=== PATIENT | female | born 1940 | race Hispanic/Latino ===

== ENCOUNTER → 2019-01-08 | Outpatient (CLI) | payer MEDICARE, OTHER | END | disposition home or self-care (01) | LOC: RAH 08:30 | PROVIDERS: ATTEND Student in an Organized Health Care Education/Training Program | CPT/HCPCS: 76700 ==

== ENCOUNTER 2019-05-28 02:19 | Inpatient (IN) | payer MEDICARE, OTHER | END 2019-05-31 16:59 | disposition home or self-care (01) | LOC: EDH 02:19 → 2BH 05-29 09:26 → 2AH 05-30 09:05 → EDHIP 04:18 → 2AH 04:46 | PROC: B2111ZZ Fluoroscopy of Multiple Coronary Arteries using Low Osmolar Contrast (ICD-10-PCS; principal; ~2019-05-28) | PROC: B2131ZZ Fluoroscopy of Multiple Coronary Artery Bypass Grafts using Low Osmolar Contrast (ICD-10-PCS; ~2019-05-28) | PROC: 4A023N8 Measurement of Cardiac Sampling and Pressure, Bilateral, Percutaneous Approach (ICD-10-PCS; ~2019-05-28) | DX: I21.4 Non-ST elevation (NSTEMI) myocardial infarction (principal); I50.23 Acute on chronic systolic (congestive) heart failure; I48.91 Unspecified atrial fibrillation; J44.9 Chronic obstructive pulmonary disease, unspecified; K21.9 Gastro-esophageal reflux disease without esophagitis ==

== ENCOUNTER 2019-07-01 01:58 | Observation (INO) | payer MEDICARE, OTHER ==
[~2019-07-01] VITALS: Ht 160 cm; Wt 59.1 kg
[~2019-07-01 01:58] MED LIST: AEC81 PO; ATOR40TA69 PO; LEVO75TA10 PO; LISI-617 PO; METF-444 PO; PANT20TA12 PO
[2019-07-01] MEDS ORDERED: FUROSEMIDE 10 MG/ML 4ML VIAL ONE (02:31)
[2019-07-01] MEDS ORDERED: FUROSEMIDE 10 MG/ML 2ML VIAL ONE (02:31)
[2019-07-01 02:47] LABS: BASOPHILS % (AUTO) 0.5 % (0.0-5.0); EOSINOPHILS % (AUTO) 1.6 % (0.0-8.0); HEMATOCRIT 41.3 % (36-48); LYMPHOCYTES % (AUTO) 22.3 % (21.0-51.0); MEAN CORPUSCULAR HEMOGLOBIN 30.8 pg (27.0-33.0); MEAN CORPUSCULAR HGB CONC 32.3 g/dL (32.0-36.0); MEAN CORPUSCULAR VOLUME 95.4 fL (79-99); MONOCYTES % (AUTO) 3.5 % (3.0-13.0); NEUTROPHILS % (AUTO) 72.1 % (40.0-77.0); NUCLEATED RED BLOOD CELLS 0.1 % (0.0-0.19); PLATELET COUNT (AUTO) 259 K/uL (130-400); RED BLOOD CELL COUNT(AUTO) 4.33 MIL/uL (4.00-5.50); RED CELL DISTRIBUTION WIDTH 14.9 % (11.0-15.5); WHITE BLOOD COUNT (AUTO) 19.9 K/uL (4.8-10.8)
[2019-07-01 02:56] LABS: CREATININE 1.2 mg/dL (0.5-1.5); POTASSIUM 4.3 mmol/L (3.5-5.1)
[2019-07-01 03:01] LABS: ALBUMIN 3.7 g/dL (3.5-5.0); BILIRUBIN,TOTAL 0.9 mg/dL (0.2-1.0); TOTAL PROTEIN, SERUM 7.5 g/dL (6.0-8.3)
[2019-07-01 03:07] LABS: ABG BASE EXCESS -6.9 mmol/L (-2.0-3.0); ABG HCO3 17.9 mmol/L (21.0-28.0); ABG OXYGEN SATURATION 99.6 % (95.0-99.0); ABG PCO2 35 mmHg (32-45)
[2019-07-01] MEDS: FUROSEMIDE 10 MG/ML 4ML VIAL IVP SCH ×2 (06:00→12:59)
[2019-07-01 08:34] VITALS: BP 123/64
--- NOTE | 2019-07-01 08:45 | NUR ---
ARRIVAL TO FLOOR PT IS AAOX4 DENIES CP DENIES SOB DENIES NV. ON O2 2LPM NC. NO COMPLAINTS. ARRIVED WITH ORDERS. CALL LIGHT WITHIN REACH.
[2019-07-01] MEDS ORDERED: PANTOPRAZOLE SODIUM 40 MG TABLET.DR PO SCH (09:15)
[2019-07-01] MEDS ORDERED: METFORMIN HCL 500 MG TABLET PO SCH (09:15)
[2019-07-01 11:42] VITALS: BP 123/53
--- NOTE | 2019-07-01 13:30 | NUR ---
DR PARRA ROUNDED OK TO DC HOME
--- NOTE | 2019-07-01 13:55 | NUR ---
DISCHARGE PATIENT AND FAMILY VERBALIZE DC INSTRUCTIONS UNDERSTANDING, AGREE TO FOLLOW UP WITH DR PARRA TOMORROW 3PM. AGREE TO TAKE MEDS ORDERED. ALL QUESTIONS ANSWERED PIV REMOVED CATH TIP INTACT. TELE PACK REMOVED. DOWN VIA WC WITH NURSE AIDE AND FAMILY.
[2019-07-01] MEDS ORDERED: ATORVASTATIN CALCIUM 40 MG TABLET PO SCH (21:00)
[2019-07-02] MEDS ORDERED: LEVOTHYROXINE 75 MCG TABLET PO SCH (07:30)
[2019-07-02] MEDS ORDERED: LISINOPRIL 5 MG TABLET PO SCH (09:00)
[2019-07-02] MEDS ORDERED: ASPIRIN 81 MG EC TAB PO SCH (09:00)
== END 2019-07-01 13:57 | disposition home or self-care (01) ==
LOC: EDH 01:58 → EDHIP 03:25 → 2DH 08:24
PROVIDERS: ADMIT Internal Medicine; ATTEND Internal Medicine
DX: I35.0 Nonrheumatic aortic (valve) stenosis (principal); R09.89 Other specified symptoms and signs involving the circulatory and respiratory systems; I48.91 Unspecified atrial fibrillation; E11.9 Type 2 diabetes mellitus without complications; I25.10 Atherosclerotic heart disease of native coronary artery without angina pectoris; Z90.49 Acquired absence of other specified parts of digestive tract; Z79.899 Other long term (current) drug therapy
CPT/HCPCS: 36415; 36600; 71045; 80053; 82550; 82803; 82948; 83880; 84484; 85025; 93005; 94660; 96374; 99284; G0378 ×10; J1940 ×3

== ENCOUNTER → 2019-09-05 | Outpatient (CLI) | payer MEDICARE ==
[~2019-09-05] VITALS: Ht 157.5 cm; Wt 58.2 kg
[~2019-09-05] MED LIST changes: +APIX5TAB PO; +CEFUROXIME SODIUM 1.5 GM VIAL IVP SCH; +ERGO500014 PO; +FURO40TA5 PO; +METO25TA6 PO; +PHARMACY COMMUNICATION MISC SCH
[2019-09-05 15:56] LABS: BASOPHILS % (AUTO) 0.5 % (0.0-5.0); EOSINOPHILS % (AUTO) 2.3 % (0.0-8.0); HEMATOCRIT 38.1 % (36-48); LYMPHOCYTES % (AUTO) 29.2 % (21.0-51.0); MEAN CORPUSCULAR HEMOGLOBIN 31.2 pg (27.0-33.0); MEAN CORPUSCULAR HGB CONC 33.4 g/dL (32.0-36.0); MEAN CORPUSCULAR VOLUME 93.6 fL (79-99); MONOCYTES % (AUTO) 5.4 % (3.0-13.0); NEUTROPHILS % (AUTO) 62.6 % (40.0-77.0); NUCLEATED RED BLOOD CELLS 0.1 % (0.0-0.19); PLATELET COUNT (AUTO) 243 K/uL (130-400); RED BLOOD CELL COUNT(AUTO) 4.07 MIL/uL (4.00-5.50); RED CELL DISTRIBUTION WIDTH 14.4 % (11.0-15.5); WHITE BLOOD COUNT (AUTO) 8.2 K/uL (4.8-10.8)
[2019-09-05 16:09] LABS: INR 0.95 (0.85-1.15); PARTIAL THROMBOPLASTIN TIME 26.4 SEC (26.3-35.5)
[2019-09-05 16:15] LABS: ALBUMIN 3.8 g/dL (3.5-5.0); BILIRUBIN,TOTAL 0.6 mg/dL (0.2-1.0); CREATININE 0.9 mg/dL (0.5-1.5); POTASSIUM 4.2 mmol/L (3.5-5.1); TOTAL PROTEIN, SERUM 7.7 g/dL (6.0-8.3)
[2019-09-05 16:19] LABS: HEMOGLOBIN A1C 6.2 % (4.0-6.0)
[2019-09-05 16:26] VITALS: BP 129/54
== END | disposition home or self-care (01) ==
LOC: DAH 10:00 → EDSTATUS 15:00
PROVIDERS: ATTEND Thoracic Surgery (Cardiothoracic Vascular Surgery)
DX: Z01.810 Encounter for preprocedural cardiovascular examination (principal); I35.0 Nonrheumatic aortic (valve) stenosis; I65.23 Occlusion and stenosis of bilateral carotid arteries; Z90.49 Acquired absence of other specified parts of digestive tract
CPT/HCPCS: 36415; 71046; 80053; 80061; 83036; 85025; 85610; 85730; 86850; 86900; 86901; 86922; 93005; 93880; 94060

== ENCOUNTER 2019-09-19 10:00 | Inpatient (IN) | payer MEDICARE ==
[~2019-09-19] VITALS: Ht 152.4 cm; Wt 58.7 kg
[~2019-09-19 10:00] MED LIST changes: -CEFUROXIME SODIUM 1.5 GM VIAL IVP SCH; -ERGO500014 PO; -FURO40TA5 PO; -METO25TA6 PO; -PANT20TA12 PO; -PHARMACY COMMUNICATION MISC SCH
[2019-09-19 11:21] VITALS: BP 117/56
[2019-09-19 11:29] LABS: BASOPHILS % (AUTO) 1.2 % (0.0-5.0); EOSINOPHILS % (AUTO) 1.7 % (0.0-8.0); HEMATOCRIT 37.5 % (36-48); LYMPHOCYTES % (AUTO) 34.9 % (21.0-51.0); MEAN CORPUSCULAR HEMOGLOBIN 31.1 pg (27.0-33.0); MEAN CORPUSCULAR HGB CONC 32.9 g/dL (32.0-36.0); MEAN CORPUSCULAR VOLUME 94.5 fL (79-99); NEUTROPHILS % (AUTO) 57.2 % (40.0-77.0); PLATELET COUNT (AUTO) 192 K/uL (130-400); RED BLOOD CELL COUNT(AUTO) 3.97 MIL/uL (4.00-5.50); RED CELL DISTRIBUTION WIDTH 14.1 % (11.0-15.5)
[2019-09-19 11:37] LABS: HEMOGLOBIN A1C 5.9 % (4.0-6.0)
[2019-09-19 11:41] LABS: POTASSIUM 4.9 mmol/L (3.5-5.1)
[2019-09-19 11:47] LABS: INR 0.98 (0.85-1.15); PARTIAL THROMBOPLASTIN TIME 25.9 SEC (26.3-35.5); PROTHROMBIN TIME 10.3 SEC (9.6-11.6)
[2019-09-19] MEDS ORDERED: METO25TA6 PO (11:56)
[2019-09-19] MEDS ORDERED: ERGO500014 PO (11:56)
[2019-09-19] MEDS ORDERED: FURO40TA5 PO (11:56)
[2019-09-22] VITALS (24 sets, daily range): BP systolic 45–212; BP diastolic 33–77
[2019-09-22] MEDS ORDERED: CEFUROXIME SODIUM 1.5 GM VIAL IVP SCH (05:00)
[2019-09-22] MEDS ORDERED: EPINEPHRINE 8 MG in SODIUM CHLORIDE 0.9% 250 ML IV SCH (06:45)
[2019-09-22] MEDS ORDERED: NOREPINEPHRINE BITARTRATE 8 MG/NS 250ML IV SCH ×2 (06:45)
[2019-09-22] MEDS ORDERED: AMINOCAPROIC ACID 15,000 MG in SODIUM CHLORIDE 0.9% 500ML 500 ML IV SCH (06:45)
[2019-09-22] MEDS ORDERED: SODIUM CHLORIDE 0.9% 1000ML 1,000 ML IV ONE (06:58)
[2019-09-22] MEDS ORDERED: ESMOLOL HCL 10 MG/ML 10 ML VIAL ONE (12:43)
[2019-09-22] MEDS ORDERED: HEPARIN SODIUM 1000UNIT/ML 10ML VIAL ONE (12:43)
[2019-09-22] MEDS ORDERED: AMINOCAPROIC ACID 250 MG/ML 20 ML VIAL IV ONE ×2 (12:43→13:09)
[2019-09-22] MEDS ORDERED: MIDAZOLAM HCL 1 MG/ML 2ML VIAL ONE (12:43)
[2019-09-22] MEDS ORDERED: SODIUM BICARB 50MEQ 50ML VIAL ONE (12:43)
[2019-09-22] MEDS ORDERED: PROPOFOL 10 MG/ML 20ML VIAL IV ONE (12:43)
[2019-09-22] MEDS ORDERED: EPINEPHRINE 1 MG/ML AMPULE ONE (12:43)
[2019-09-22] MEDS ORDERED: NOREPINEPHRINE BITARTRATE 1 MG/1 ML ML IV ONE (12:43)
[2019-09-22] MEDS ORDERED: LIDOCAINE PF 2% 5ML ABBOJECT ONE (12:43)
[2019-09-22] MEDS ORDERED: PROTAMINE SULFATE 10 MG/ML 25ML VIAL IV ONE (12:43)
[2019-09-22] MEDS ORDERED: ROCURONIUM 10MG/1ML SYR 10 MG/ML ML ONE ×2 (12:44→14:38)
[2019-09-22] MEDS ORDERED: SUFENTANIL CITRATE 50 MCG/ML 1ML AMP ONE (12:47)
[2019-09-22] MEDS ORDERED: NITROGLYCERIN 50 MG/D5% WATER 1 BOT ONE (13:08)
[2019-09-22] MEDS ORDERED: CALCIUM CHLORIDE 100 MG/ML 10 ML SYG IVP ONE (13:09)
[2019-09-22] MEDS ORDERED: SODIUM BICARB 8.4% 50ML SYRINGE IVP ONE (13:09)
[2019-09-22] MEDS ORDERED: HEPARIN SODIUM 1000UNIT/ML 10ML VIAL IV ONE (13:09)
[2019-09-22] MEDS ORDERED: MANNITOL 25% 50ML VIAL IV ONE (13:09)
[2019-09-22] MEDS ORDERED: PHENYLEPHRINE HCL 10 MG/ML 1ML VIAL IV ONE (13:09)
[2019-09-22] MEDS ORDERED: ALBUMIN (HUMAN) 25% 50 ML IV ONE (13:09)
[2019-09-22 13:15] LABS: ABG BASE EXCESS -1.7 mmol/L (-2.0-3.0); ABG HCO3 21.6 mmol/L (21.0-28.0); ABG OXYGEN SATURATION 98.7 % (95.0-99.0); ABG PCO2 31 mmHg (32-45)
[2019-09-22] MEDS ORDERED: CEFUROXIME SODIUM 1.5 GM VIAL ONE (13:15)
[2019-09-22] MEDS ORDERED: BACITRACIN 50,000 UNIT VIAL ONE ×2 (13:29→14:38)
[2019-09-22] MEDS ORDERED: ROPIVACAINE 0.5% 5MG/ML 30ML IJ ONE (13:29)
[2019-09-22 14:51] LABS: ABG BASE EXCESS -3.5 mmol/L (-2.0-3.0); ABG HCO3 19.7 mmol/L (21.0-28.0); ABG OXYGEN SATURATION 98.6 % (95.0-99.0); ABG PCO2 27 mmHg (32-45)
[2019-09-22 15:22] LABS: ABG BASE EXCESS -1.9 mmol/L (-2.0-3.0); ABG HCO3 20.2 mmol/L (21.0-28.0); ABG OXYGEN SATURATION 98.7 % (95.0-99.0); ABG PCO2 24 mmHg (32-45)
[2019-09-22] MEDS ORDERED: AMIODARONE HCL 50 MG/ML 3 ML VIAL ONE ×2 (15:23→15:30)
[2019-09-22] MEDS ORDERED: VASOPRESSIN 20 UNITS/ML 1ML VIAL ONE (15:28)
[2019-09-22] MEDS ORDERED: GLYCOPYRROLATE 1 MG/5 ML SYRINGE ONE (15:31)
[2019-09-22 15:40] LABS: ABG BASE EXCESS 1.5 mmol/L (-2.0-3.0); ABG HCO3 23.7 mmol/L (21.0-28.0); ABG OXYGEN SATURATION 98.6 % (95.0-99.0); ABG PCO2 28 mmHg (32-45)
[2019-09-22] MEDS ORDERED: MAGNESIUM 2GM PREMIX 50ML 50 ML IV PRN (16:00)
[2019-09-22] MEDS ORDERED: MORPHINE SULFATE 4 MG/1ML SYG IV PRN (16:00)
[2019-09-22] MEDS ORDERED: DEXTROSE 50%-WATER 50 ML DISP.SYRIN IV PRN (16:00)
[2019-09-22] MEDS ORDERED: INSULIN REGULAR, HUMAN 3ML 100 UNIT in SODIUM CHLORIDE 0.9% 99 ML IV SCH ×2 (16:00)
[2019-09-22] MEDS ORDERED: POTASSIUM PHOS 15 mMOL+NS250ML 250 ML IV PRN (16:00)
[2019-09-22] MEDS ORDERED: ONDANSETRON HCL 4 MG/2 ML VIAL IV PRN (16:00)
[2019-09-22] MEDS ORDERED: ALBUMIN (HUMAN) 5% 250 ML IV PRN (16:00)
[2019-09-22] MEDS ORDERED: GLUCAGON 1MG KIT 1 MG ML IM PRN (16:00)
[2019-09-22] MEDS ORDERED: SODIUM CHLORIDE 0.9% 10 ML VIAL IVP PRN (16:00)
[2019-09-22] MEDS ORDERED: EPINEPHRINE 8 MG in DEXTROSE 5%-WATER 250 ML IV PRN (16:00)
[2019-09-22] MEDS ORDERED: NITROGLYCERIN 50 MG/D5% WATER 250 BOT IV SCH (16:00)
[2019-09-22] MEDS ORDERED: ACETAMINOPHEN 325 MG TAB PO PRN ×2 (16:00)
[2019-09-22] MEDS ORDERED: NOREPINEPHRINE 4MG/NS 250ML 250 ML IV PRN (16:00)
[2019-09-22] MEDS ORDERED: AMINOCAPROIC ACID 15,000 MG in SODIUM CHLORIDE 0.9% 250 ML IV SCH (16:00)
[2019-09-22] MEDS ORDERED: MORPHINE SULFATE 2 MG/ML 1ML SYG IV PRN (16:00)
[2019-09-22] MEDS ORDERED: SODIUM CHLORIDE 0.9% 500ML 500 ML IV SCH (16:00)
[2019-09-22] MEDS ORDERED: SODIUM CHLORIDE 0.9% 1000ML 1,000 ML IV SCH (16:00)
[2019-09-22] MEDS ORDERED: SODIUM BICARB 50MEQ 50ML VIAL IV PRN (16:00)
[2019-09-22] MEDS ORDERED: ACETAMINOPHEN 650 MG SUPPOSITORY RC PRN (16:00)
[2019-09-22] MEDS ORDERED: SODIUM CHLORIDE 0.9% 250 ML IV PRN (16:00)
[2019-09-22] MEDS ORDERED: AMBU PUMP 1 EACH EACH MISC SCH (16:15)
[2019-09-22 16:18] LABS: ABG BASE EXCESS -6.2 mmol/L (-2.0-3.0); ABG HCO3 19.1 mmol/L (21.0-28.0); ABG OXYGEN SATURATION 98.3 % (95.0-99.0); ABG PCO2 37 mmHg (32-45)
[2019-09-22] MEDS ORDERED: INSULIN HUMULIN R 100 UNIT/ML 3ML ONE (16:40)
--- NOTE | 2019-09-22 16:47 | NUR ---
ARRIVAL TO CVR Received from OR. Dr. Dealcruz at bedside. Orally intubated with 7.5 ETT at 20cm at lips, tolerating vent settings as prescribed, off sedation. ETT connected to endotracheal cardiac output monitor. Central Venous catheter to right IJ noted infusing Amicar at 50cc, Levophed at 8mcg/min, and Epinephrine drip at 0.10 mcg/kg/min. Dressing dry and intact to right upper chest. Pacing wires attached to chest, epicardial pacemaker set to VVI rate of 100. Arterial line to left radial patent, leveled and zeroed with adequate waveform. Chest tube x1 to right chest, no air leak noted, minimal serosanguineous output. Nair catheter to gravity. Pulses palpable, ALMAS hose applied. Sinus mechanism in 90s, ASBP 150s
[2019-09-22] MEDS ORDERED: BUPIVACAINE/PF 0.5% 10ML VIAL ONE (17:09)
--- NOTE | 2019-09-22 17:30 | NUR ---
ANESTHESIA Dr. Delacruz at bedside, attempt to remove loose tooth unsuccessful. New consult received for Dr. Burnett, office personnel made aware, ok to see in am as per Dr. Delacruz.
[2019-09-22 17:39] LABS: ABG BASE EXCESS -2.3 mmol/L (-2.0-3.0); ABG HCO3 20.5 mmol/L (21.0-28.0); ABG OXYGEN SATURATION 97.8 % (95.0-99.0); ABG PCO2 30 mmHg (32-45)
--- NOTE | 2019-09-22 17:40 | NUR ---
SHC Dr. Don consumer lending manager for [facility] made aware of pt arrival to CVR, will see in am.
[2019-09-22 17:46] LABS: CREATININE 0.8 mg/dL (0.5-1.5); MAGNESIUM 2.1 mg/dL (1.80-2.40); PHOSPHORUS 4.1 mg/dL (2.5-4.9); POTASSIUM 3.9 mmol/L (3.5-5.1)
[2019-09-22 17:47] LABS: INR 1.82 (0.85-1.15); PARTIAL THROMBOPLASTIN TIME 36.3 SEC (26.3-35.5); PROTHROMBIN TIME 18.7 SEC (9.6-11.6)
[2019-09-22] MEDS: PROPOFOL 1000 MG/100 ML 100 ML IV PRN (17:56)
[2019-09-22] MEDS ORDERED: ROPIVACAINE 0.2% 2MG/ML 100ML VIAL IJ ONE (18:00)
--- NOTE | 2019-09-22 18:05 | NUR ---
MD NOTIFICATION Dr. Morris made aware of EKG showing wide complex tachycardia with hypotension, new order received and will carry out.
[2019-09-22 20:00] LABS: ABG BASE EXCESS 3.6 mmol/L (-2.0-3.0); ABG HCO3 26.5 mmol/L (21.0-28.0); ABG OXYGEN SATURATION 98.7 % (95.0-99.0); ABG PCO2 35 mmHg (32-45)
[2019-09-22 20:01] LABS: HEMATOCRIT 41.3 % (36-48); MEAN CORPUSCULAR HEMOGLOBIN 30.3 pg (27.0-33.0); MEAN CORPUSCULAR HGB CONC 32.9 g/dL (32.0-36.0); MEAN CORPUSCULAR VOLUME 92.3 fL (79-99); PLATELET COUNT (AUTO) 76 K/uL (130-400); RED BLOOD CELL COUNT(AUTO) 4.48 MIL/uL (4.00-5.50); RED CELL DISTRIBUTION WIDTH 15.9 % (11.0-15.5); WHITE BLOOD COUNT (AUTO) 22.1 K/uL (4.8-10.8)
[2019-09-22] MEDS: POTASSIUM CHLORIDE 20MEQ/100ML 100 ML IV PRN ×2 (20:07→21:22)
[2019-09-22] MEDS: ATORVASTATIN CALCIUM 40 MG TABLET PO SCH (20:28)
[2019-09-22] MEDS: CEFAZOLIN SODIUM 1 GM VIAL IV SCH (21:00)
[2019-09-22] MEDS: CALCIUM GLUCONATE 1 GM in SODIUM CHLORIDE 0.9% 50 ML IV PRN (21:03)
[2019-09-22] MEDS ORDERED: ALBUMIN (HUMAN) 5% 250 ML IV ONE (21:07)
[2019-09-23] VITALS (33 sets, daily range): BP systolic 76–190; BP diastolic 28–75
[2019-09-23 00:32] LABS: CREATININE 0.8 mg/dL (0.5-1.5); POTASSIUM 4.1 mmol/L (3.5-5.1)
[2019-09-23] MEDS: PROPOFOL 1000 MG/100 ML 100 ML IV PRN (01:51)
[2019-09-23] MEDS ORDERED: PHARMACY COMMUNICATION MISC SCH ×2 (03:00→05:30)
[2019-09-23 04:13] LABS: ABG BASE EXCESS 0.3 mmol/L (-2.0-3.0); ABG HCO3 21.5 mmol/L (21.0-28.0); ABG OXYGEN SATURATION 98.4 % (95.0-99.0); ABG PCO2 26 mmHg (32-45)
[2019-09-23 04:26] LABS: MEAN CORPUSCULAR HEMOGLOBIN 30.1 pg (27.0-33.0); MEAN CORPUSCULAR HGB CONC 33.2 g/dL (32.0-36.0); MEAN CORPUSCULAR VOLUME 90.7 fL (79-99); PLATELET COUNT (AUTO) 73 K/uL (130-400); RED BLOOD CELL COUNT(AUTO) 3.75 MIL/uL (4.00-5.50); WHITE BLOOD COUNT (AUTO) 19.5 K/uL (4.8-10.8)
[2019-09-23] MEDS ORDERED: CALCIUM GLUCONATE 1 GM/10 ML VIAL IV ONE (04:34)
[2019-09-23 04:39] LABS: INR 1.09 (0.85-1.15); PARTIAL THROMBOPLASTIN TIME 27.1 SEC (26.3-35.5); PROTHROMBIN TIME 11.4 SEC (9.6-11.6)
[2019-09-23] MEDS: CALCIUM GLUCONATE 1 GM in SODIUM CHLORIDE 0.9% 50 ML IV PRN (04:44)
[2019-09-23] MEDS: CEFAZOLIN SODIUM 1 GM VIAL IV SCH ×2 (04:57→13:17)
[2019-09-23 05:12] LABS: CREATININE 0.9 mg/dL (0.5-1.5); MAGNESIUM 1.7 mg/dL (1.80-2.40); PHOSPHORUS 1.5 mg/dL (2.5-4.9); POTASSIUM 3.8 mmol/L (3.5-5.1)
[2019-09-23] MEDS ORDERED: NOREPINEPHRINE BITARTRATE 8 MG/NS 250ML IV SCH ×2 (06:45)
[2019-09-23] MEDS: LEVOTHYROXINE 88 MCG TABLET PO SCH (06:45)
--- NOTE | 2019-09-23 07:32 | NUR ---
DR. THOMAS HAVE SPOKEN TO HIM REGARDING THE CONSULT
[2019-09-23] MEDS: FUROSEMIDE 10 MG/ML 2ML VIAL IV SCH ×2 (08:34→20:22)
[2019-09-23] MEDS: ASPIRIN 81 MG EC TAB PO SCH (08:34)
[2019-09-23] MEDS: FAMOTIDINE/PF 20 MG/2 ML VIAL IV SCH (08:34)
--- NOTE | 2019-09-23 08:45 | NUR ---
DR. THOMAS VISITED AND ASSESSED PATIENT. UPDATED ON PATIENT STATUS. ORDERS GIVEN SEE CHART.
--- NOTE | 2019-09-23 10:45 | NUR ---
DR. BONE VISITED AND ASSESSED PATIENT. UPDATED ON XRAYS AND STATUS. OK TO START CPAP TRIALS.
--- NOTE | 2019-09-23 11:00 | NUR ---
PATIENT VENTILATOR CHANGED TO SIMV OF 4.
--- NOTE | 2019-09-23 11:15 | NUR ---
VENTILATOR CHANGED TO CPAP 08/23. CPAP TRIALS.
[2019-09-23] MEDS: TRAMADOL HCL 50 MG TABLET PO PRN ×2 (11:16→17:36)
[2019-09-23 12:08] LABS: ABG BASE EXCESS 2.4 mmol/L (-2.0-3.0); ABG OXYGEN SATURATION 98.4 % (95.0-99.0); ABG PCO2 36 mmHg (32-45)
--- NOTE | 2019-09-23 12:25 | NUR ---
PATIENT TOLERATED CPAP TRIALS, ABG RESULTS WITH IN NORMAL RANGES. PATIENT EXTUBATED PER MD ORDER.
[2019-09-23 13:36] LABS: ABG BASE EXCESS 1.8 mmol/L (-2.0-3.0); ABG HCO3 25.6 mmol/L (21.0-28.0); ABG PCO2 38 mmHg (32-45)
--- NOTE | 2019-09-23 13:42 | NUR ---
PATIENT IS NOT READY FOR PT EVALUATION PER GEOVANNA CHILDS PATIENT IS STILL INTUBATED. Addendum: 09/23/19 at 1344 by JUDD ZAMBRANO, PT PT Amended: Links added.
[2019-09-23 20:01] LABS: MAGNESIUM 2.3 mg/dL (1.80-2.40); PHOSPHORUS 5.1 mg/dL (2.5-4.9); POTASSIUM 4.3 mmol/L (3.5-5.1)
[2019-09-23] MEDS: ATORVASTATIN CALCIUM 40 MG TABLET PO SCH (20:21)
[2019-09-24] VITALS (23 sets, daily range): BP systolic 86–187; BP diastolic 40–108
[2019-09-24] MEDS: TRAMADOL HCL 50 MG TABLET PO PRN ×3 (00:22→13:38)
[2019-09-24 04:27] LABS: HEMATOCRIT 29.6 % (36-48); MEAN CORPUSCULAR HGB CONC 33.5 g/dL (32.0-36.0); MEAN CORPUSCULAR VOLUME 92.3 fL (79-99); PLATELET COUNT (AUTO) 41 K/uL (130-400); RED BLOOD CELL COUNT(AUTO) 3.21 MIL/uL (4.00-5.50); RED CELL DISTRIBUTION WIDTH 15.8 % (11.0-15.5); WHITE BLOOD COUNT (AUTO) 16.4 K/uL (4.8-10.8)
[2019-09-24 04:53] LABS: POTASSIUM 3.6 mmol/L (3.5-5.1)
[2019-09-24] MEDS: POTASSIUM CHLORIDE 20MEQ/100ML 100 ML IV PRN ×2 (04:56→06:18)
[2019-09-24] MEDS: LEVOTHYROXINE 88 MCG TABLET PO SCH (05:57)
[2019-09-24] MEDS: INSULIN HUMULIN R 100 UNIT/ML 3ML SQ SCH ×4 (06:43→21:00)
--- NOTE | 2019-09-24 07:00 | NUR ---
ASSESSMENT ASSUMED CARE. SITTING IN CARDIAC CHAIR. AA&OX3. NO RESPIRATORY DISTRESS NOTED. UNLABORED RESPIRATIONS ON O2 3L NC. ENCOURAGED COUGH AND DEEP BREATHING. EXPECTORATED MODERATE AMOUNT OF YELLOW SPUTUM. ENCOURAGED I.S. Q1HR WHILE AWAKE. TOLERATED 500ML. CHEST TUBES SECURE, PATENT, DRAINING TO 20CM H20 SUCTION. SHULTZ SECURE & PATENT. BEDSIDE MONITORING SINUS RHYTHM HR 60'S WITH FREQUENT PAC'S. FULL ASSESSMENT DOCUMENTED.
--- NOTE | 2019-09-24 07:30 | NUR ---
DR PATE HERE UPDATED REGARDING PT STATUS. HE REVIEWED CHART, V/S, LABS. ORDERS RECEIVED AND CARRIED OUT.
--- NOTE | 2019-09-24 08:30 | NUR ---
VISITOR, SON, HERE TO SEE PT UPDATED. PATIENT IN VERY GOOD SPIRITS AND VERY MOTIVATED TO INCREASE ACTIVITY AND GO HOME.
[2019-09-24] MEDS ORDERED: METOPROLOL TARTRATE 25 MG TAB PO SCH (09:00)
--- NOTE | 2019-09-24 09:00 | NUR ---
DR THOMAS HERE TO SEE PATIENT UPDATED. HE VIEWED XRAYS FROM TODAY AND YESTERDAY. HE STATED NO INTERVENTION FROM HIS AT THIS POINT AND JUST CALL BACK IF NEEDED.
[2019-09-24] MEDS: FUROSEMIDE 20 MG TABLET PO SCH ×2 (09:42→17:32)
[2019-09-24] MEDS: FAMOTIDINE/PF 20 MG/2 ML VIAL IV SCH (09:42)
[2019-09-24] MEDS: ASPIRIN 81 MG EC TAB PO SCH (09:42)
[2019-09-24] MEDS: METFORMIN HCL 500 MG TAB.SR.24H PO SCH (09:42)
--- NOTE | 2019-09-24 11:00 | NUR ---
DR BARON HERE TO SEE PT UPDATED. HE VIEWED XRAYS FROM TODAY AND YESTERDAY. NO NEW ORDERS AT THIS TIME.
--- NOTE | 2019-09-24 14:39 | NUR ---
SUDHIR PLAN VISITED WITH PATIENT. PATIENT STILL IN CVR. SLEEPING MAILE WILL CONTINUE TO FOLLOW. Addendum: 09/24/19 at 1439 by ELLEN KHANNA RN CM Amended: Links added.
--- NOTE | 2019-09-24 16:06 | NUR ---
dr fowler here to see patient. updated. ordered not to consult hematology at this time. notified dr perez. downgraded to tele.
[2019-09-24] MEDS: METOPROLOL TARTRATE 25 MG TAB PO SCH (20:50)
[2019-09-24] MEDS: ATORVASTATIN CALCIUM 40 MG TABLET PO SCH (20:50)
[2019-09-25] MEDS: TRAMADOL HCL 50 MG TABLET PO PRN ×3 (03:50→22:11)
[2019-09-25 04:00] VITALS: BP 158/58
[2019-09-25 04:39] LABS: HEMATOCRIT 29.9 % (36-48); MEAN CORPUSCULAR HEMOGLOBIN 30.8 pg (27.0-33.0); MEAN CORPUSCULAR HGB CONC 33.4 g/dL (32.0-36.0); MEAN CORPUSCULAR VOLUME 92.2 fL (79-99); PLATELET COUNT (AUTO) 40 K/uL (130-400); RED BLOOD CELL COUNT(AUTO) 3.24 MIL/uL (4.00-5.50); RED CELL DISTRIBUTION WIDTH 15.5 % (11.0-15.5); WHITE BLOOD COUNT (AUTO) 10.6 K/uL (4.8-10.8)
[2019-09-25 04:54] LABS: CREATININE 0.8 mg/dL (0.5-1.5); POTASSIUM 3.9 mmol/L (3.5-5.1)
[2019-09-25] MEDS: INSULIN HUMULIN R 100 UNIT/ML 3ML SQ SCH ×4 (06:27→21:00)
[2019-09-25] MEDS: LEVOTHYROXINE 88 MCG TABLET PO SCH (06:29)
[2019-09-25 07:52] VITALS: BP 149/54
[2019-09-25] MEDS ORDERED: ENOXAPARIN SODIUM 30 MG/0.3 ML SQ SCH (09:00)
[2019-09-25] MEDS: METFORMIN HCL 500 MG TAB.SR.24H PO SCH (09:00)
[2019-09-25] MEDS: FAMOTIDINE/PF 20 MG/2 ML VIAL IV SCH (09:00)
[2019-09-25] MEDS: FUROSEMIDE 20 MG TABLET PO SCH ×2 (09:01→22:07)
[2019-09-25] MEDS: METOPROLOL TARTRATE 25 MG TAB PO SCH ×2 (09:01→22:07)
[2019-09-25 11:24] VITALS: BP 150/58
--- NOTE | 2019-09-25 14:34 | NUR ---
DC PLAN VISITED WITH PATIENT. PATIENT LIVES WITH ALONE. SEMI INDEPENDENT ABLE TO PERFORM ADL'S. PATIENT HAS PROVIDER 27 11/20. HOME HEALTH IS UNITED. FEELS SAFE TO RETURN HOME. LET NURSE KNOW NEED ORDER FROM DR. BROOKS TO CONTINUE HOME HEALTH SERVICES. Addendum: 09/25/19 at 1436 by ELLEN KHANNA RN CM Amended: Links added.
--- NOTE | 2019-09-25 15:00 | NUR ---
REMOVAL OF LINES CHEST TUBE, SHULTZ, AND QPUMP REMOVED, PACER WIRES CLIPPED TOLERATED WELL, MANUAL PRESSURE HELD AND DSTAT APPLIED TO RT IJ AFTER CORDIS REMOVED, CALL LIGHT WITHIN REACH, FAMILY AT BEDSIDE.
[2019-09-25 16:13] VITALS: BP 147/54
[2019-09-25 19:44] VITALS: BP 138/51
[2019-09-25] MEDS: ATORVASTATIN CALCIUM 40 MG TABLET PO SCH (22:07)
[2019-09-25 23:27] VITALS: BP 157/64
[2019-09-26] MEDS: TRAMADOL HCL 50 MG TABLET PO PRN ×2 (03:54→03:55)
[2019-09-26 04:00] VITALS: BP 136/51
[2019-09-26 04:22] LABS: HEMATOCRIT 29.3 % (36-48); MEAN CORPUSCULAR HGB CONC 33.7 g/dL (32.0-36.0); PLATELET COUNT (AUTO) 43 K/uL (130-400); RED BLOOD CELL COUNT(AUTO) 3.19 MIL/uL (4.00-5.50); RED CELL DISTRIBUTION WIDTH 14.3 % (11.0-15.5); WHITE BLOOD COUNT (AUTO) 7.8 K/uL (4.8-10.8)
[2019-09-26 04:31] LABS: CREATININE 0.6 mg/dL (0.5-1.5); POTASSIUM 3.4 mmol/L (3.5-5.1)
[2019-09-26] MEDS: INSULIN HUMULIN R 100 UNIT/ML 3ML SQ SCH (06:05)
[2019-09-26] MEDS: LEVOTHYROXINE 88 MCG TABLET PO SCH ×2 (06:18→09:10)
[2019-09-26 07:42] VITALS: BP 143/56
[2019-09-26] MEDS: FUROSEMIDE 20 MG TABLET PO SCH (09:09)
[2019-09-26] MEDS: FAMOTIDINE/PF 20 MG/2 ML VIAL IV SCH (09:09)
[2019-09-26] MEDS: METOPROLOL TARTRATE 25 MG TAB PO SCH (09:10)
[2019-09-26] MEDS: METFORMIN HCL 500 MG TAB.SR.24H PO SCH (09:10)
[2019-09-26] MEDS ORDERED: POTASSIUM CHLORIDE 10% ELIXIR 20 MEQ/15 ML UDCUP PO PRN (09:15)
== END 2019-09-26 10:56 | disposition home or self-care (01) | DRG 219 ==
LOC: EDSTATUS 10:00 → DAHIP 09-22 06:17 → 2CV 09-22 15:44 → 2AH 09-24 16:56 → 2DH 09-24 17:26
PROVIDERS: ADMIT Thoracic Surgery (Cardiothoracic Vascular Surgery); ATTEND Thoracic Surgery (Cardiothoracic Vascular Surgery)
PROC: B24BZZ4 Ultrasonography of Heart with Aorta, Transesophageal (ICD-10-PCS; 2019-09-22)
PROC: X2RF032 Replacement of Aortic Valve using Zooplastic Tissue, Rapid Deployment Technique, Open Approach, New Technology Group 2 (ICD-10-PCS; principal; 2019-09-22 12:40)
PROC: 5A1221Z Performance of Cardiac Output, Continuous (ICD-10-PCS; 2019-09-22 12:40)
PROC: 30233N1 Transfusion of Nonautologous Red Blood Cells into Peripheral Vein, Percutaneous Approach (ICD-10-PCS; 2019-09-23)
DX: I35.0 Nonrheumatic aortic (valve) stenosis (principal); I50.43 Acute on chronic combined systolic (congestive) and diastolic (congestive) heart failure; I11.0 Hypertensive heart disease with heart failure; I48.0 Paroxysmal atrial fibrillation; D64.9 Anemia, unspecified; D69.6 Thrombocytopenia, unspecified; D72.829 Elevated white blood cell count, unspecified; E03.9 Hypothyroidism, unspecified; E11.9 Type 2 diabetes mellitus without complications; E78.00 Pure hypercholesterolemia, unspecified; E78.5 Hyperlipidemia, unspecified; F41.9 Anxiety disorder, unspecified; I25.10 Atherosclerotic heart disease of native coronary artery without angina pectoris; J44.9 Chronic obstructive pulmonary disease, unspecified; K21.9 Gastro-esophageal reflux disease without esophagitis; T18.108A Unspecified foreign body in esophagus causing other injury, initial encounter; Y92.89 Other specified places as the place of occurrence of the external cause; I25.2 Old myocardial infarction; Z79.4 Long term (current) use of insulin; Z79.899 Other long term (current) drug therapy; Z86.73 Personal history of transient ischemic attack (TIA), and cerebral infarction without residual deficits; Z90.710 Acquired absence of both cervix and uterus; Z95.1 Presence of aortocoronary bypass graft; Z83.3 Family history of diabetes mellitus
CPT/HCPCS: 36415; 70140; 71045; 71046; 71047; 80048; 80061; 82330; 82435; 82803; 82947; 82948; 83036; 83605; 83735; 84100; 84132; 84295; 85018; 85025; 85027; 85347; 85610; 85730; 86850; 86900; 86901; 86922; 93005; 93318; 94002; 94003; 97039; A7048; G0378; J0171; J0282; J0610; J0690; J0697; J1030; J1644; J1815; J1940; J2001; J2150; J2250; J2270; J2370; J2704; J2720; J2795; J3475; J3480; J3490; J7030; J7040; P9016; P9045; P9047

== ENCOUNTER → 2024-02-15 | Outpatient (CLI) | payer MEDICARE ==
[~2024-02-15] MED LIST changes: +ERGO500014 PO; +FURO40TA5 PO; -LISI-617 PO; +LISI5TAB21 PO; +METO25TA6 PO
== END | disposition home or self-care (01) ==
LOC: RAH 08:59
PROVIDERS: ATTEND Internal Medicine
DX: M54.14 Radiculopathy, thoracic region (principal); M54.16 Radiculopathy, lumbar region
CPT/HCPCS: 72070; 72100

== ENCOUNTER 2024-10-26 21:03 | Inpatient (IN) | payer MEDICARE ==
[~2024-10-26] VITALS: Ht 160 cm; Wt 66.4 kg
--- NOTE | 2024-10-26 21:34 | HMCIMG ---
CHEST 1VW REASON: SYNCOPE COMPARISON: 09/16/2024 FINDINGS: Single view of the chest was obtained. Lungs are clear. Heart size is normal. There is no pulmonary vascular congestion. Mediastinum and bony thorax appear unremarkable. There is been a previous median sternotomy. IMPRESSION: 1. No acute finding, no change.
[2024-10-26] MEDS: 0.9%NACL 1000ML 1,000 ML IV ONE (21:51)
[2024-10-26 21:58] LABS: BASOPHILS # (AUTO) 0.06 K/uL (0.00-0.20); BASOPHILS % (AUTO) 0.3 % (0.0-5.0); HEMATOCRIT 40.1 % (36-48); IMMATURE GRANULOCYTE ABSOLUTE 0.07 K/uL (0-1); LYMPHOCYTES # (AUTO) 0.6 K/uL (1.0-4.8); LYMPHOCYTES % (AUTO) 3.6 % (21.0-51.0); MEAN CORPUSCULAR HEMOGLOBIN 32.6 pg (27.0-33.0); MEAN CORPUSCULAR HGB CONC 32.9 g/dL (32.0-36.0); MONOCYTES # (AUTO) 0.8 K/uL (0.1-1.0); MONOCYTES % (AUTO) 4.3 % (3.0-13.0); NEUTROPHILS # (AUTO) 16.1 K/uL (1.8-7.7); NEUTROPHILS % (AUTO) 91.4 % (40.0-77.0); PLATELET COUNT (AUTO) 168 K/uL (130-400); RED BLOOD CELL COUNT(AUTO) 4.05 MIL/uL (4.00-5.50); RED CELL DISTRIBUTION WIDTH 13.2 % (11.0-15.5); WHITE BLOOD COUNT (AUTO) 17.6 K/uL (4.8-10.8)
[2024-10-26 22:08] LABS: CREATININE 1.2 mg/dL (0.5-1.0); POTASSIUM 3.9 mmol/L (3.5-5.1)
[2024-10-26 22:13] LABS: INR 1.01 (0.85-1.15); PROTHROMBIN TIME 10.9 SEC (9.6-11.6)
--- NOTE | 2024-10-26 22:13 | ERN ---
General Chief Complaint: Syncope Stated Complaint: SYNCOPE WHILE SITTING IN CHAIR, NO TRAUMA Time Seen by MD: 21:19 History of Present Illness Initial Comments Mrs Disla is an is a 84-year-old female significant past medical history of tobacco abuse, essential hypertension, type 2 diabetes, hyperlipidemia who presents today with a chief complaint of syncope. Patient was brought in by her son who reports that she recently was seen at [facility] for a fall and a subsequent left humeral fracture. Patient apparently has been falling more in the last week. Patient was unable to at to any assisted movements. She has trouble with independence. She has trouble getting out of her chair. Patient continues to smoke. Allergies: Coded Allergies: codeine (Unverified Allergy, Unknown, 09/05/19) iodine (Unverified Allergy, Unknown, 05/29/19) Home Meds Reported Medications Ergocalciferol (Vitamin D2) (Vitamin D2) 50,000 Unit Capsule, 50789 UNIT PO WEEKLY, CAP 09/19/19 Metoprolol Tartrate (Metoprolol Tartrate) 25 Mg Tablet, 25 MG PO BID, TAB 09/19/19 Furosemide (Furosemide) 40 Mg Tablet, 40 MG PO BID, TAB 09/19/19 Apixaban (Eliquis) 5 Mg Tablet, 5 MG PO BID, TAB 09/05/19 Metformin HCl (Metformin HCl) 500 Mg Tablet, 500 MG PO AM, TAB 05/28/19 Lisinopril (Lisinopril) 5 Mg Tablet, 2.5 MG PO AM, TAB 05/28/19 Levothyroxine Sodium (Levothyroxine Sodium) 75 Mcg Tablet, 88 MCG PO ACBKFST, TAB 05/28/19 Atorvastatin Calcium (LIPITOR) 40 Mg Tablet, 40 MG PO HS, TAB 05/28/19 Aspirin (ASPIRIN 81 MG ECTAB) 81 Mg Ectab, 81 MG PO DAILY, TAB.EC 05/28/19 Past Medical History Past Medical History: CAD, CVA, Dementia, Diabetes-Type II, High Cholesterol, Heart Disease, Hypertension Past Surgical History: CABG ROS Dictation Constitutional: Negative for fever,chills, and weight loss Eyes: Negative for injury, pain,redness, and discharge ENT: Negative for injury,pain or swelling Cardiovascular: Negative for chest pain, palpitations, and edema Respiratory: Negative for shortness of breath, cough, and wheezing, Abdomen/GI: Negative for abdominal pain, nausea, vomiting, diarrhea, and constipation Back: Negative for injury and pain : Negative for injury, bleeding and discharge MS/Extremity: Positive for falls Skin: Negative for rash, and discoloration Neuro: Positive for weakness Psych: Negative for suicide ideation, homicidal ideation, and hallucinations Physical Exam Physical Exam Dictation General: Sleeping female Head/Face: Normocephalic, atraumatic Eyes: PERRL, EOMI ENT: oral cavity clear Neck: Trachea midline, supple, Cardiovascular: RRR, normal S1/S2, No MRGs, no JVD Respiratory: Diminished breath sounds Abdomen: Soft, non-tender, non-distended, normal bowel sounds, no guarding or rebound. Skin: Warm, dry, normal turgor, no rash MS/Extremity: Pulses equal, Neuro: Continuously moving extremities Results Laboratory and Microbiology Lab and Micro Result Laboratory Tests Test 10/26/24 21:50 White Blood Count 17.6 K/uL (4.8-10.8) H Red Blood Count 4.05 MIL/uL (4.00-5.50) Hemoglobin 13.2 g/dL (12.0-16.0) Hematocrit 40.1 % (36-48) Mean Corpuscular Volume 99.0 fL (79-99) Mean Corpuscular Hemoglobin 32.6 pg (27.0-33.0) Mean Corpuscular Hemoglobin Concent 32.9 g/dL (32.0-36.0) Red Cell Distribution Width 13.2 % (11.0-15.5) Platelet Count 168 K/uL (130-400) Mean Platelet Volume 11.6 fL (7.5-10.5) H Immature Granulocyte % (Auto) 0.4 % (0-1) Neutrophils (%) (Auto) 91.4 % (40.0-77.0) H Lymphocytes (%) (Auto) 3.6 % (21.0-51.0) L Monocytes (%) (Auto) 4.3 % (3.0-13.0) Eosinophils (%) (Auto) 0.0 % (0.0-8.0) Basophils (%) (Auto) 0.3 % (0.0-5.0) Neutrophils # (Auto) 16.1 K/uL (1.8-7.7) H Lymphocytes # (Auto) 0.6 K/uL (1.0-4.8) L Monocytes # (Auto) 0.8 K/uL (0.1-1.0) Eosinophils # (Auto) 0.00 K/uL (0.00-0.70) Basophils # (Auto) 0.06 K/uL (0.00-0.20) Absolute Immature Granulocyte (auto 0.07 K/uL (0-1) Nucleated Red Blood Cells 0.0 % (0.0-0.19) White Cell Morphology Comment See comments Prothrombin Time 10.9 SEC (9.6-11.6) Prothromb Time International Ratio 1.01 (0.85-1.15) Sodium Level 144 mmol/L (136-145) Potassium Level 3.9 mmol/L (3.5-5.1) Chloride Level 107 mmol/L (101-111) Carbon Dioxide Level 26 mmol/L (21-32) Blood Urea Nitrogen 24 mg/dL (7-18) H Creatinine 1.2 mg/dL (0.5-1.0) H Glomerular Filtration Rate Calc 45 mL/min (>90) Random Glucose 187 mg/dL (70-105) H Total Calcium 9.6 mg/dL (8.5-10.1) Magnesium Level 1.80 mg/dL (1.80-2.40) Total Creatine Kinase 72 U/L (21-232) # Troponin I High Sensitivity 43.6 ng/L (4-50) MDM Patient appears to have a COPD exacerbation and severe deconditioning. Patient will be admitted for further evaluation and care MDM: Differential diagnosis: COPD exacerbation Rationale: Tests considered and ordered secondary to shared decision making include: labs, ECG and radiology Previous outside records reviewed: Old ER visits. Risk of complication and/or morbidity or mortality of patient management: None Medications-Per medication reconciliation Need for hospitalization: Patient does meet criteria for hospitalization. Need for emergency major/minor surgery: No There are no social concerns with this patient. Prescription drug management Prescriptions will include symptomatic care Patient's prior external medical records from other ER visits were reviewed by me as indicated. Prior testing and results from previous visits were reviewed. Prior tests were taken into account with medical decision making and resource utilization, independent historian/historians were used to obtain complete medical history. I independently interpreted the test that were performed, results were reviewed by me and considered findings on radiology if ordered. Medical management and examination interpretation discussions were had by me with other qualified healthcare professionals as indicated for the patient's care. ED Course Orders Procedure Category Date Status Time Cbc With Differential LAB 10/26/24 Complete 21:07 Basic Metabolic Panel LAB 10/26/24 Complete 21:07 Pt And Ptt LAB 10/26/24 In Process 21:07 Magnesium LAB 10/26/24 Complete 21:07 12 Lead Ekg Tracing- EKG 10/26/24 Logged Technical 21:07 Chest 1vw RAD 10/26/24 Resulted 21:07 Urinalysis Profile LAB 10/26/24 Logged 21:07 Cardiac Panel LAB 10/26/24 Complete 21:43 Chest 1vw RAD 10/26/24 Logged 21:43 Ct Head/Brain W/O CT 10/26/24 Logged Contrast 21:43 0.9%Nacl 1000ml (Ns PHA 10/26/24 Complete 1000ml) 22:00 Current Medications Medications (Trade) Dose Ordered Sig/Ej Route PRN Reason Start Time Stop Time Status Last Admin Dose Admin Sodium Chloride 1,000 ml @ 0 mls/hr ONCE ONCE IV 10/26/24 22:00 10/26/24 22:01 DC 10/26/24 21:51 Vital Signs Date Time Temp Pulse Resp B/P (MAP) Pulse Ox O2 Delivery O2 Flow Rate FiO2 10/26/24 21:58 80 19 98/67 95 Room Air* 0 10/26/24 21:22 79 16 134/89 95 Room Air* 0 10/26/24 21:04 99.1 82 18 125/84 98 Room Air 0 DX & DISP Disposition: Discharge Departure Impression: Primary Impression: COPD exacerbation Condition: Stable Referrals: JOSE BROOKS MD (PCP) ALONA FERNANDEZ MD Oct 26, 2024 22:13
--- NOTE | 2024-10-26 22:15 | NUR ---
SON REPORTS PATIENT HAVING AN EPISODE WHERE SHE WENT SLUMPED BACK IN CHAIR AFTER GETTING [place] [facility] [place] REPORTS SHE HAS BEEN HAVING EPISODED LIKE THIS FOR A FEW DAYS. REPORTS WAS SEEN EARLIER TODAY AT [facility] [place] AND SUSTAINED A FRACTURE TO L UPPER ARM. REPORTS SLING PLACED ON PATIENT AND DISCHARGED HOME.
[2024-10-26 22:19] LABS: MAGNESIUM 1.8 mg/dL (1.80-2.40)
[2024-10-26] MEDS: Solu-medROL 125MG VIAL IVP ONE (23:01)
--- NOTE | 2024-10-26 23:05 | NUR ---
PATIENT DID NOT BRING HOME MEDICATIONS
[2024-10-26] MEDS: ZOSYN 3.375GM +NS 50ML IVPB SCH (23:14)
[2024-10-26] MEDS: DEXTROSE 5 %-0.45 % NACL 1,000 ML IV SCH (23:15)
[2024-10-26 23:36] LABS: ABG BASE EXCESS -1.8 mmol/L (-2.0-3.0); ABG HCO3 20.7 mmol/L (21.0-28.0); ABG OXYGEN SATURATION 91.2 % (94.0-98.0); ABG PCO2 30 mmHg (32-45); ABG PH 7.463 (7.350-7.450); DEVICE COMMENT RB,RN MANY; VENT MODE, BG RA,21 (ROOM AIR)
[2024-10-26 23:40] LABS: PARTIAL THROMBOPLASTIN TIME 21.9 SEC (26.3-35.5)
[2024-10-27] VITALS (11 sets, daily range): BP systolic 91–133; BP diastolic 57–82; PULSE 71–83; RESP 16–24; TEMP 97.5–98.3; O2SAT 90–98
--- NOTE | 2024-10-27 00:42 | HMCIMG ---
CT HEAD/BRAIN W/O CONTRAST HISTORY: The COMPARISON: None TECHNIQUE: Multiple sequential axial images of the head were obtained from the base of the skull through vertex. Patient was not given contrast through intravenous route. FINDINGS: The ventricles and extraventricular CSF spaces are dilated consistent with cerebral atrophy. Nonspecific white matter changes seen. 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 There is no midline shift, mass effect or herniation. No acute intracranial bleed is seen. Visualized portion of the paranasal sinuses are grossly within normal limits. IMPRESSION: 1. No acute intracranial bleed is seen. 2. Atrophy with white matter changes. 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 CT was performed with one or more following dose reduction techniques: automated exposure control, adjustment of the mA and kv according to patient's size, or use of a iterative reconstruction technique.
[2024-10-27] MEDS ORDERED: TRAM100T34 PO (02:10)
[2024-10-27] MEDS ORDERED: LEVO100T4 PO (02:10)
[2024-10-27] MEDS ORDERED: METO-391 PO (02:10)
[2024-10-27] MEDS ORDERED: MIDO2.5T4 PO (02:10)
--- NOTE | 2024-10-27 07:28 | EKG ---
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
--- NOTE | 2024-10-27 08:13 | PN ---
PROGRESS NOTE PROGRESS NOTE DATE OF PROGRESS NOTE: 10/27/24 SUBJECTIVE: Has general body weakness and has been unable to walk since the fracture VITAL SIGNS Vital Signs Date Time Temp Pulse Resp B/P (MAP) Pulse Ox O2 Delivery O2 Flow Rate FiO2 10/27/24 07:31 97.5 81 106/63 Nasal Cannula 2.0 10/27/24 07:29 18 28 10/27/24 04:06 99 PHYSICAL EXAM: General: Sleeping female Head/Face: Normocephalic, atraumatic Eyes: PERRL, EOMI ENT: oral cavity clear Neck: Trachea midline, supple, Cardiovascular: RRR, normal S1/S2, No MRGs, no JVD Respiratory: Diminished breath sounds Abdomen: Soft, non-tender, non-distended, normal bowel sounds, no guarding or rebound. Skin: Warm, dry, normal turgor, no rash MS/Extremity: Pulses equal, Neuro: Continuously moving extremities LABORATORY: Laboratory Result(s) Test 10/26/24 21:50 10/26/24 23:34 White Blood Count 17.6 K/uL (4.8-10.8) Red Blood Count 4.05 MIL/uL (4.00-5.50) Hemoglobin 13.2 g/dL (12.0-16.0) Hematocrit 40.1 % (36-48) Mean Corpuscular Volume 99.0 fL (79-99) Mean Corpuscular Hemoglobin 32.6 pg (27.0-33.0) Mean Corpuscular Hemoglobin Concent 32.9 g/dL (32.0-36.0) Red Cell Distribution Width 13.2 % (11.0-15.5) Platelet Count 168 K/uL (130-400) Mean Platelet Volume 11.6 fL (7.5-10.5) Immature Granulocyte % (Auto) 0.4 % (0-1) Neutrophils (%) (Auto) 91.4 % (40.0-77.0) Lymphocytes (%) (Auto) 3.6 % (21.0-51.0) Monocytes (%) (Auto) 4.3 % (3.0-13.0) Eosinophils (%) (Auto) 0.0 % (0.0-8.0) Basophils (%) (Auto) 0.3 % (0.0-5.0) Neutrophils # (Auto) 16.1 K/uL (1.8-7.7) Lymphocytes # (Auto) 0.6 K/uL (1.0-4.8) Monocytes # (Auto) 0.8 K/uL (0.1-1.0) Eosinophils # (Auto) 0.00 K/uL (0.00-0.70) Basophils # (Auto) 0.06 K/uL (0.00-0.20) Absolute Immature Granulocyte (auto 0.07 K/uL (0-1) Nucleated Red Blood Cells 0.0 % (0.0-0.19) White Cell Morphology Comment See comments Prothrombin Time 10.9 SEC (9.6-11.6) Prothromb Time International Ratio 1.01 (0.85-1.15) Activated Partial Thromboplast Time 21.9 SEC (26.3-35.5) Sodium Level 144 mmol/L (136-145) Potassium Level 3.9 mmol/L (3.5-5.1) Chloride Level 107 mmol/L (101-111) Carbon Dioxide Level 26 mmol/L (21-32) Blood Urea Nitrogen 24 mg/dL (7-18) Creatinine 1.2 mg/dL (0.5-1.0) Glomerular Filtration Rate Calc 45 mL/min (>90) Random Glucose 187 mg/dL (70-105) Total Calcium 9.6 mg/dL (8.5-10.1) Magnesium Level 1.80 mg/dL (1.80-2.40) Total Creatine Kinase 72 U/L (21-232) Troponin I High Sensitivity 43.6 ng/L (4-50) Blood Gas Specimen Type Arterial Arterial Blood pH 7.463 (7.350-7.450) Arterial Blood Partial Pressure CO2 30 mmHg (32-45) Arterial Blood Partial Pressure O2 56.0 mmHg (83.0-108.0) Arterial Blood HCO3 20.7 mmol/L (21.0-28.0) Arterial Blood Oxygen Saturation 91.2 % (94.0-98.0) Arterial Blood Base Excess -1.8 mmol/L (-2.0-3.0) Blood Gas Temperature 37.0 CELSIUS (35.5-37.0) Blood Gas Vent Mode RA,21 (ROOM AIR) FiO2 21.0 % Blood Gas Specimen Comment RB,RN MANY INPATIENT MEDS: Current Medications Medications Dose Ordered Sig/Ej Start Time Stop Time Status Last Admin Dextrose/Sodium Chloride 1,000 ml @ 50 mls/hr Q20H 10/26/24 23:00 11/25/24 22:59 10/26/24 23:15 Methylprednisolone Sodium Succinate 80 mg Q12H9 10/27/24 09:00 11/26/24 08:59 Piperacillin Sod/ Tazobactam Sod 3.375 gm Q8H 10/26/24 23:00 11/05/24 22:59 10/27/24 06:15 Albuterol 1 UDVIAL Q6H PRN 10/26/24 23:00 11/25/24 22:59 Enoxaparin Sodium 30 mg DAILY 10/27/24 09:00 11/26/24 08:59 PROBLEM LIST: (1) Alzheimer dementia with behavioral disturbance ICD Code: G30.9 - Alzheimer's disease, unspecified; F02.818 - Dementia in other diseases classified elsewhere, unspecified severity, with other behavioral disturbance (2) Spinal stenosis ICD Code: M48.00 - Spinal stenosis, site unspecified (3) Generalized osteoarthritis of multiple sites ICD Code: M15.9 - Polyosteoarthritis, unspecified (4) Functional gait disorder ICD Code: R26.9 - Unspecified abnormalities of gait and mobility PLAN: Case management for discharge planning to the long term Chronic obstructive pulmonary disease Severe continues to smoke stable Advancing dementia with progressive physical deconditioning with a fall and a fracture at home discharge planning to snf facility Patient is DNR advanced care planning discussed with the patient family the son FELIX BROOKSARNULFO SUMNER Oct 27, 2024 08:13
[2024-10-27] MEDS: Solu-medROL 40MG VIAL IVP SCH (09:02)
[2024-10-27] MEDS: ENOXAPARIN SODIUM 30 MG/0.3 ML SQ SCH (09:02)
[2024-10-27] MEDS ORDERED: PHARMACY COMMUNICATION MISC SCH (11:00)
--- NOTE | 2024-10-27 13:18 | NUR ---
Discharge Planning: Information and signed TARIQ obtained from patient's son Ventura Nova. Contact number is . Referral will be sent to [facility], pending H&P and PT notes. Addendum: 10/27/24 at 1322 by AARON HUFF RN CM Amended: Links added.
[2024-10-27] MEDS: miDODRine HCL 5 MG TABLET PO SCH (14:00)
[2024-10-27] MEDS ORDERED: TRAMADOL HCL 50 MG PO SCH (14:00)
[2024-10-27] MEDS: traMADol HCL 50 MG TABLET PO PRN (14:19)
--- NOTE | 2024-10-27 17:32 | HP ---
HISTORY OF PRESENT ILLNESS: The patient of Dr. Colorado, came to the emergency room by her son who reports patient has been recently seen at [facility] after sustaining a fall and was diagnosed with left humeral fracture. After having x-ray and evaluated, she was told that did not need any surgery. The patient went home and from there, she went back to the emergency room after she was not able to stand on her own, unable to ambulate and having associated productive cough and shortness of breath. The patient is a heavy smoker. ALLERGIES: CODEINE AND IODINE. MEDICATIONS: Metoprolol, furosemide, Eliquis, metformin, lisinopril, levothyroxine, atorvastatin, aspirin. PAST MEDICAL HISTORY: Type 2 diabetes, hypertension, dyslipidemia, coronary artery disease, atrial fibrillation, chronic anticoagulation, status post CVA, dementia, status post CABG. REVIEW OF SYSTEMS: Having no fever, chills, seizures, loss of consciousness. No diplopia, dysarthria or dysphonia. Productive persistent cough. No wheezes. No rhonchi. No chest pain, palpitations or dizziness. No abdominal pain. No nausea, vomiting, or diarrhea. No dysuria, urgency, or frequency. No rashes, petechia or ecchymoses. No hallucinations or delusions. No suicidal ideation. PHYSICAL EXAMINATION: GENERAL: She is currently awake, alert, oriented in person, time, and place, not in distress with an immobilizer in the left shoulder. VITAL SIGNS: In the chart. HEENT: Normocephalic, atraumatic. LUNGS: Decreased breath sounds bilaterally with productive cough. No wheezes. No rhonchi. HEART: S1, S2 are distant. ABDOMEN: Soft, nontender. No masses. Bowel sounds present. EXTREMITIES: No clubbing, cyanosis. No edema. LABORATORY DATA: WBC count 17.6, hemoglobin 13.2, platelets 168. Sodium 144, potassium 3.9, creatinine 1.2, BUN 24, glucose 187. Chest x-ray was reported as no infiltrates or effusions. Head CT shows no acute intracranial bleeding, atrophy with white matter changes. There is left lobe occipital infarct. ASSESSMENT AND PLAN: * Status post fall with left arm humerus fracture. Continue with immobilizer. Follow up with orthopedics as an outpatient as per [facility] evaluation. * Chronic obstructive pulmonary disease exacerbation. Continue with antibiotics, bronchodilators, and steroids. She is going to be started on Zosyn. * Hypertension. Continue current medications. * Type 2 diabetes. Continue with home medications, diet and sliding scale. * Hypothyroidism. Continue with levothyroxine. The patient is being followed by Dr. Colorado. She will be transferred to his service. DOS: 10/26/2024 TID: [id number] RECEIPT: [id number] [facility]
[2024-10-27] MEDS: atorVAStatin 40 MG TABLET PO SCH (20:33)
--- NOTE | 2024-10-27 20:35 | NUR ---
MEDS SHIFT ASSESSMENT DONE, PLEASE REFER TO CHART. DUE MEDS ADMINISTERED, TOLERATED WELL. KEPT RESTED AND COMFORTABLE IN BED. BED ALARM KEPT ACTIVATED WITH SIDE RAILS UP. CALL LIGHT WITHIN REACH.
[2024-10-28] VITALS (10 sets, daily range): BP systolic 91–119; BP diastolic 51–75; PULSE 59–71; RESP 16–22; TEMP 97.4–98.1; O2SAT 97–99
[2024-10-28] MEDS: levoTHYROxine 100 MCG TABLET PO SCH (06:15)
--- NOTE | 2024-10-28 06:15 | NUR ---
MEDS PT SLEPT AT INTERVALS DURING THE SHIFT. NO DISTRESS NOTED. AWAKENED FOR DUE MEDS. TOLERATED WELL. KEPT WARM AND DRY. FOR MORE CARE.
--- NOTE | 2024-10-28 06:50 | NUR ---
MD DR BROOKS IN TO SEE PT. NO NEW ORDERS GIVEN.
--- NOTE | 2024-10-28 07:21 | NUR ---
PAGED REPORT GIVEN TO AM NURSE SMILEY. ENDORSING PT FOR MORE CARE AND MANAGEMENT. PAGED DR BROOKS VIA ANSWERING SERVICE TO CLARIFY MEDS. AWAITING CALL BACK.
[2024-10-28] MEDS: IpraTROPium/alBUTERol SULFATE 3 ML SOLUTION IH PRN (07:35)
[2024-10-28] MEDS: LISINOPRIL 2.5 MG TABLET PO SCH (08:56)
[2024-10-28] MEDS: metOPROLol sucCINATE 50 MG TAB.SR.24H PO SCH (08:56)
--- NOTE | 2024-10-28 11:15 | PN ---
PROGRESS NOTE PROGRESS NOTE DATE OF PROGRESS NOTE: 10/28/24 SUBJECTIVE: She is pending placement VITAL SIGNS Vital Signs Date Time Temp Pulse Resp B/P (MAP) Pulse Ox O2 Delivery O2 Flow Rate FiO2 10/28/24 11:00 99 Nasal Cannula* 2 28 10/28/24 08:25 68 18 10/28/24 08:00 97.5 114/75 PHYSICAL EXAM: General: Sleeping female Head/Face: Normocephalic, atraumatic Eyes: PERRL, EOMI ENT: oral cavity clear Neck: Trachea midline, supple, Cardiovascular: RRR, normal S1/S2, No MRGs, no JVD Respiratory: Diminished breath sounds Abdomen: Soft, non-tender, non-distended, normal bowel sounds, no guarding or rebound. Skin: Warm, dry, normal turgor, no rash MS/Extremity: Pulses equal, Neuro: Continuously moving extremities LABORATORY: Laboratory Result(s) Test 10/27/24 19:18 10/28/24 05:16 Whole Blood Glucose 193 MG/DL (70-110) 183 MG/DL (70-110) Bedside Glucose Comment Notified Nurse INPATIENT MEDS: Current Medications Medications Dose Ordered Sig/Ej Start Time Stop Time Status Last Admin Dextrose/Sodium Chloride 1,000 ml @ 50 mls/hr Q20H 10/26/24 23:00 11/25/24 22:59 10/27/24 18:18 Methylprednisolone Sodium Succinate 80 mg Q12H9 10/27/24 09:00 11/26/24 08:59 10/28/24 08:55 Piperacillin Sod/ Tazobactam Sod 3.375 gm Q8H 10/26/24 23:00 11/05/24 22:59 10/28/24 06:15 Albuterol 1 UDVIAL Q6H PRN 10/26/24 23:00 11/25/24 22:59 10/28/24 07:35 Enoxaparin Sodium 30 mg DAILY 10/27/24 09:00 11/26/24 08:59 10/28/24 08:57 Atorvastatin Calcium 40 mg HS 10/27/24 21:00 11/26/24 20:59 10/27/24 20:33 Levothyroxine Sodium 100 mcg SYN 10/28/24 06:30 11/27/24 06:29 10/28/24 06:15 Midodrine 2.5 mg TID 10/27/24 14:00 11/26/24 13:59 10/27/24 20:33 Tramadol HCl 50 mg TID PRN 10/27/24 14:00 11/01/24 13:59 10/28/24 08:56 Lisinopril 2.5 mg AM 10/28/24 09:00 11/27/24 08:59 10/28/24 08:56 Metoprolol Succinate 50 mg DAILY 10/28/24 09:00 11/27/24 08:59 10/28/24 08:56 PROBLEM LIST: (1) Alzheimer dementia with behavioral disturbance ICD Code: G30.9 - Alzheimer's disease, unspecified; F02.818 - Dementia in other diseases classified elsewhere, unspecified severity, with other behavioral disturbance (2) Spinal stenosis ICD Code: M48.00 - Spinal stenosis, site unspecified (3) Generalized osteoarthritis of multiple sites ICD Code: M15.9 - Polyosteoarthritis, unspecified (4) Functional gait disorder ICD Code: R26.9 - Unspecified abnormalities of gait and mobility PLAN: Case management for [facility] planning to the [facility] Chronic obstructive pulmonary disease Severe continues to smoke stable Advancing dementia with progressive physical deconditioning with a fall and a fracture at home discharge planning to residential facility Patient is DNR advanced care planning discussed with the patient family the son FELIX BROOKSARNULFO SUMNER Oct 28, 2024 11:15
[2024-10-29] VITALS (8 sets, daily range): BP systolic 100–108; BP diastolic 59–72; PULSE 51–68; RESP 18–24; TEMP 97.4–98.5; O2SAT 94–97
[2024-10-29 02:05] LABS: APPEARANCE,URINE TURBID (CLEAR); BILIRUBIN,URINE NEGATIVE (NEGATIVE); COLOR,URINE LIGHT-YELLOW (YELLOW); GLUCOSE, URINE (UA) NEGATIVE (NEGATIVE); KETONES,URINE 5 mg/dL (NEGATIVE); LEUKOCYTE ESTERASE ,URINE NEGATIVE Leu/uL (NEGATIVE); NITRATE,URINE NEGATIVE (NEGATIVE); OCCULT BLOOD,URINE NEGATIVE (NEGATIVE); PROTEIN,URINE 30 mg/dL (NEGATIVE); UROBILINOGEN,URINE 0.2 mg/dL (0.2-1.0)
[2024-10-29 02:07] LABS: ADD UA MICROSCOPIC YES
[2024-10-29 02:12] LABS: RBC,URINE 26-50 /HPF (0-1); SQUAMOUS EPITHELIAL CELL,UR RARE /HPF (0-2); URIC ACID CRYSTALS,URINE MANY /LPF (None Seen)
--- NOTE | 2024-10-29 15:25 | NUR ---
REPORT GIVEN TO JERRY CHILDS. PT WILL BE TRANSFERRING WITH [facility].
--- NOTE | 2024-10-29 15:35 | NUR ---
PT'S SON BRYCE NATARAJAN IS CALLED [phone] AND MADE AWARE PT WILL BE TRANSFERRING TO [facility]. VERBALIZED UNDERSTANDING.
--- NOTE | 2024-10-29 16:45 | NUR ---
DC NOTE DC INSTRUCTIONS GIVEN TO PT'S SON AND PT WELL. PIV REMOVED, CATHETER INTACT, DENIES ANY PAIN OR DISCOMFORT. FACILITY TRANSPORTER WHEELED PT DOWNSTAIRS INTO VIA FACILITY VAN WITH COPY CHART. NO FURTHER COMMENTS OR CONCERNS AT THIS TIME.
--- NOTE | 2024-10-30 15:24 | DS ---
Discharge Summary DIAGNOSE(S): [(1) Alzheimer dementia with behavioral disturbance ICD Code: G30.9 - Alzheimer's disease, unspecified; F02.818 - Dementia in other diseases classified elsewhere, unspecified severity, with other behavioral disturbance (2) Spinal stenosis ICD Code: M48.00 - Spinal stenosis, site unspecified (3) Generalized osteoarthritis of multiple sites ICD Code: M15.9 - Polyosteoarthritis, unspecified (4) Functional gait disorder ICD Code: R26.9 - Unspecified abnormalities of gait and mobility PLAN: Case management for discharge planning to the detention Chronic obstructive pulmonary disease Severe continues to smoke stable Advancing dementia with progressive physical deconditioning with a fall and a fracture at home discharge planning to shelter facility Patient is DNR advanced care planning discussed with the patient family the son] HOSPITAL COURSE SUMMARY: [] GEM CUTTER(S): [] PROCEDURE(S)/TREATMENT(S): [] PROBLEM(S): [] FOLLOW-UP TEST(S): [] DISCHARGE INSTRUCTIONS: [] Home Meds Reported Medications Midodrine HCl (Midodrine HCl) 2.5 Mg Tablet, 1 TAB PO TID for 30 Days, #90 TAB 0 Refills 10/27/24 Tramadol HCl (Tramadol HCl ER) 100 Mg Tab.er.24h, 50 MG PO TID for pain, TAB 10/27/24 Metoprolol Succinate (Metoprolol Succinate) 50 Mg Tab.er.24h, 1 TAB PO DAILY for 30 Days, #30 TAB 0 Refills 10/27/24 Levothyroxine Sodium (Synthroid 100 Mcg Tab) 100 Mcg Tablet, 1 TAB PO ACBKFST for 30 Days, #30 TAB 0 Refills 10/27/24 Ergocalciferol (Vitamin D2) (Vitamin D2) 50,000 Unit Capsule, 81607 UNIT PO WEEKLY, CAP 09/19/19 Metformin HCl (Metformin HCl) 500 Mg Tablet, 500 MG PO AM, TAB 05/28/19 Lisinopril (Lisinopril) 5 Mg Tablet, 2.5 MG PO AM, TAB 05/28/19 Atorvastatin Calcium (LIPITOR) 40 Mg Tablet, 40 MG PO HS, TAB 05/28/19 Aspirin (ASPIRIN 81 MG ECTAB) 81 Mg Ectab, 81 MG PO DAILY, TAB.EC 05/28/19 Discontinued Reported Medications Metoprolol Tartrate (Metoprolol Tartrate) 25 Mg Tablet, 25 MG PO BID, TAB 09/19/19 Furosemide (Furosemide) 40 Mg Tablet, 40 MG PO BID, TAB 09/19/19 Apixaban (Eliquis) 5 Mg Tablet, 5 MG PO BID, TAB 09/05/19 Levothyroxine Sodium (Levothyroxine Sodium) 75 Mcg Tablet, 88 MCG PO ACBKFST, TAB 05/28/19 JOSE BROOKS MD Oct 30, 2024 15:24
== END 2024-10-29 16:45 | DRG 191 ==
LOC: EDH 21:03 → EDHIP 22:49 → 3AH 10-27 01:52
PROVIDERS: ADMIT Internal Medicine; ATTEND Internal Medicine
DX: J44.1 Chronic obstructive pulmonary disease with (acute) exacerbation (principal); F02.818 Dementia in other diseases classified elsewhere, unspecified severity, with other behavioral disturbance; S42.392A Other fracture of shaft of left humerus, initial encounter for closed fracture; R55 Syncope and collapse; G30.9 Alzheimer's disease, unspecified; M48.00 Spinal stenosis, site unspecified; Z66 Do not resuscitate; M15.8 Other polyosteoarthritis; I48.91 Unspecified atrial fibrillation; I25.10 Atherosclerotic heart disease of native coronary artery without angina pectoris; E78.00 Pure hypercholesterolemia, unspecified; F17.200 Nicotine dependence, unspecified, uncomplicated; I10 Essential (primary) hypertension; E11.9 Type 2 diabetes mellitus without complications; E03.9 Hypothyroidism, unspecified; R26.2 Difficulty in walking, not elsewhere classified; Z95.1 Presence of aortocoronary bypass graft; Z86.73 Personal history of transient ischemic attack (TIA), and cerebral infarction without residual deficits; Z79.01 Long term (current) use of anticoagulants; Y93.89 Activity, other specified; Y92.89 Other specified places as the place of occurrence of the external cause; Z79.899 Other long term (current) drug therapy
CPT/HCPCS: 36415; 36600; 70450; 71045; 80048; 81001; 82550; 82803; 82948; 83735; 84484; 85025; 85610; 85730; 93005; 96374; 99285; G0378; J1650; J2543; J2919; J7030; J7042